=== PATIENT | male | born 1945 | race Caucasian/White ===

== ENCOUNTER → 2017-07-15 | Outpatient (CLI) | payer MEDICARE, BC ==
--- NOTE | 2017-07-15 17:29 | RADIOLOGY REPORT (SQ) ---
EXAM DESCRIPTION: MRI CERVICAL SPINE WITHOUT COMPLETED DATE/TIME: 07/15/2017 4:46 pm REASON FOR STUDY: M54.12 RADICULOPATHY, CERVICAL REGION M43.02 SPONDYLOLYSIS, CERVICAL REGION M54.12 RADICULOPATHY, CERVICAL REGION M43.02 SPONDYLOLYSIS, CERVICAL REGION M54.2 CERVICALGIA COMPARISON: None. TECHNIQUE: Sagittal and Axial imaging includes T1, T2, STIR and gradient echo sequences. LIMITATIONS: None. FINDINGS: ALIGNMENT: Mild anterolisthesis is suggested at C4-5. VERTEBRAE: Intact. BONE MARROW: Mild marrow edema along the C4-5 endplates to the right of midline. There is also right facet mild edema and degenerative change. DISCS: Multilevel diminished signal and height. Detailed below. HARDWARE: None in the spine. CORD AND BASE OF BRAIN: Normal in size and signal intensity. SOFT TISSUES: No soft tissue masses. C1-C2: No significant spinal stenosis. C2-C3: No significant spinal stenosis or exit foraminal stenosis. C3-C4: Minimal disc osteophyte complex. Associated uncovertebral spurring with relatively marked eda ateral foraminal stenosis. No cord compression or central stenosis. C4-C5: Mild presumed degenerative malalignment as above. Associated disc osteophyte complex without mass effect on the cord. Marked right foraminal stenosis. At least moderate left foraminal narrowin g. C5-C6: Disc osteophyte complex without cord compression or high-grade central stenosis. Suspect at l east moderate left foraminal stenosis. C6-C7: Disc osteophyte complex without central stenosis or mass effect on the cord. Mild to moderate foraminal narrowing. C7-T1: No significant spinal stenosis or exit foraminal stenosis. UPPER THORACIC: Incompletely imaged. No significant spinal stenosis or exit foraminal stenosis. OTHER: No other significant finding. IMPRESSION: 1. Cervical spondylosis which looks most pronounced at C4-5. Here, there appears to be mild anterolisthesis with reactive bone edema and foraminal stenosis. 2. No cord compression or hig h-grade central stenosis noted at any level. Other levels of foraminal stenosis are present. TECHNICAL DOCUMENTATION: JOB ID: [id number]- All Rights Reserved
== END ==
LOC: RAD 16:02
PROVIDERS: ATTEND Internal Medicine
DX: M54.12 Radiculopathy, cervical region (principal); M43.02 Spondylolysis, cervical region; M54.2 Cervicalgia
CPT/HCPCS: 72141

== ENCOUNTER 2018-04-08 07:37 | Day surgery (SDC) | payer MEDICARE, BC ==
--- NOTE | 2018-04-02 10:11 | EKG REPORT ---
SEVERITY:- NORMAL ECG - SINUS RHYTHM : Confirmed by: Jarvis Arnett 02-Apr-2018 10:10:44
[2018-04-02 10:25] LABS: HEMATOCRIT 40.6 % (37.9-51.0); HEMOGLOBIN 14.2 g/dL (13.5-17.0); MEAN CORPUSCULAR HEMOGLOBIN 33.1 pg (27.0-33.4); MEAN CORPUSCULAR VOLUME 95 fl (80-97); PLATELET COUNT 259 10^3/uL (150-450); RED BLOOD COUNT 4.29 10^6/uL (4.35-5.55); RED CELL DISTRIBUTION WIDTH 12.9 % (11.5-14.0); WHITE BLOOD COUNT 4.1 10^3/uL (4.0-10.5)
[2018-04-02 10:44] LABS: ALANINE AMINOTRANSFERASE 39 U/L (21-72); ALKALINE PHOSPHATASE 40 U/L (38-126); ANION GAP 7 (5-19); ASPARTATE AMINO TRANSFERASE 31 U/L (17-59); BILIRUBIN,DIRECT 0.4 mg/dL (0.0-0.4); BILIRUBIN,TOTAL 0.8 mg/dL (0.2-1.3); BLOOD UREA NITROGEN 13 mg/dL (7-20); CALCIUM 9.8 mg/dL (8.4-10.2); CARBON DIOXIDE 28 mmol/L (22-30); CHLORIDE 107 mmol/L (98-107); GLUCOSE 97 mg/dL (75-110); POTASSIUM 4.9 mmol/L (3.6-5.0); SODIUM 141.5 mmol/L (137-145); TOTAL PROTEIN 6.9 g/dL (6.3-8.2)
--- NOTE | 2018-04-02 10:49 | RADIOLOGY REPORT (SQ) ---
EXAM DESCRIPTION: CHEST PA/LATERAL COMPLETED DATE/TIME: 04/02/2018 9:58 am REASON FOR STUDY: PRE-OP COMPARISON: None. EXAM PARAMETERS: NUMBER OF VIEWS: two views TECHNIQUE: Digital Frontal and Lateral radiographic views of the chest acquired. RADIATION DOSE: NA LIMITATIONS: none FINDINGS: LUNGS AND PLEURA: No opacities, masses or pneumothorax. No pleural effusion. MEDIASTINUM AND HILAR STRUCTURES: No masses or contour abnormalities. HEART AND VASCULAR STRUCTURES: Heart normal size. No evidence for failure. BONES: No acute findings. HARDWARE: None in the chest. OTHER: No other significant finding. IMPRESSION: NO SIGNIFICANT RADIOGRAPHIC FINDING IN THE CHEST. TECHNICAL DOCUMENTATION: JOB ID: [id number] [employer]- All Rights Reserved Reading location - IP/workstation name: [email or web address]
[~2018-04-08 07:37] MED LIST: CEFAZOLIN 2 GM/D5W RTU 2 GM/50 ML RTUPB IV PRN; LACTATED RINGERS 1000 ML IV PRN; LIDOCAINE 0.5% INJ-PF (5 MG/ML) 50 ML SDV SUBCUT PRN
[2018-04-08] MEDS ORDERED: CEFAZOLIN 2 GM/D5W RTU 2 GM/50 ML RTUPB IV ONE (08:09)
[2018-04-08] MEDS ORDERED: LIDOCAINE 4% TRANSPARENT DRESSING 5 GM KIT ONE (08:10)
[2018-04-08 08:44] LABS: POTASSIUM 4.2 mmol/L (3.6-5.0)
[2018-04-08] MEDS ORDERED: SUCCINYLCHOLINE CHLORIDE INJ 200 MG/10 ML VIAL ONE (08:56)
[2018-04-08] MEDS ORDERED: GLYCOPYRROLATE 1 MG/5 ML SYRINGE ONE (08:56)
[2018-04-08] MEDS ORDERED: BUPIVACAINE HCL 0.5 % INJ/PF 30 ML SDV ONE (10:42)
[2018-04-08] MEDS ORDERED: METHYLENE BLUE 50 MG/10 ML AMPULE ONE ×2 (10:43→10:50)
[2018-04-08] MEDS ORDERED: LIDOCAINE 1% INJ-PF (10 MG/ML) 30 ML SDV ONE (10:43)
[2018-04-08] MEDS ORDERED: FENTANYL CITRATE INJ/PF 100 MCG/2 ML AMPUL ONE (11:46)
[2018-04-08] MEDS ORDERED: ACETAMINOPHEN 1,000 MG/100 ML RTUPB IV ONE (11:46)
[2018-04-08] MEDS ORDERED: ONDANSETRON HCL INJ/PF 4 MG/2 ML SDV ONE (11:46)
[2018-04-08] MEDS ORDERED: MIDAZOLAM 2 MG/2 ML INJ ONE (11:46)
[2018-04-08] MEDS ORDERED: DEXAMETHASONE SOD PHOSPHATE INJ 4 MG/1 ML VIAL ONE (11:46)
[2018-04-08] MEDS ORDERED: PROPOFOL INJ 200 MG/20 ML VIAL IV ONE (11:46)
--- NOTE | 2018-04-08 12:04 | RADIOLOGY REPORT (SQ) ---
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 RADIONUCLIDE AND DOSE: 606 microcuries TC-99m tilmanocept - [employer]. The route of agent administration: Subcutaneous in the skin. TECHNIQUE: The skin of the right neck was prepped in sterile fashion. The radiopharmaceutical was a dministered adjacent to the site of the skin lesion. LIMITATIONS: None. FINDINGS: Images demonstrate activity at the injection site. IMPRESSION: ADMINISTRATION OF RADIOPHARMACEUTICAL FOR SENTINEL LYMPH NODE EVALUATION. TECHNICAL DOCUMENTATION: JOB ID: [id number] [employer]- All Rights Reserved Reading location - IP/workstation name: [email or web address]
[2018-04-08] MEDS ORDERED: ONDANSETRON HCL INJ/PF 4 MG/2 ML SDV IV PRN (12:43)
[2018-04-08] MEDS ORDERED: PROMETHAZINE HCL INJ 25 MG/1 ML VIAL IV PRN ×2 (12:43)
[2018-04-08] MEDS ORDERED: MEPERIDINE HCL/PF INJ 25 MG/1 ML DISP.SYRIN IV PRN (12:43)
[2018-04-08] MEDS ORDERED: OXYCODONE-ACETAMINOPHEN 5-325 MG TABLET PO PRN ×2 (12:43)
[2018-04-08] MEDS ORDERED: DIPHENHYDRAMINE HCL 50 MG/ML VIAL IV PRN (12:43)
[2018-04-08] MEDS ORDERED: MORPHINE SULFATE 10 MG/ML INJ IV PRN (12:43)
[2018-04-08] MEDS ORDERED: FENTANYL CITRATE INJ/PF 100 MCG/2 ML AMPUL IV PRN ×3 (12:43)
--- NOTE | 2018-04-08 15:31 | Operative Report ---
Nonrecallable Operative Report DATE OF SURGERY: 04/08/18 PREOPERATIVE DIAGNOSIS: Right neck melanoma POSTOPERATIVE DIAGNOSIS: Same as above OPERATION: 1. Wide local excision of right neck melanoma. 2. [place] lymph node biopsy SURGEON: RACHEL LONDONO ANESTHESIA: GA TISSUE REMOVED OR ALTERED: 1. Wide local excision of right neck melanoma. 2. Right neck sentinel lymph node. 3. Left neck sentinel lymph node. 4. Additional tissue from the right neck. COMPLICATIONS: None apparent. ESTIMATED BLOOD LOSS: 25 cc PROCEDURE: Drains/implants: None. Procedure in detail: After informed consent was obtained, the patient was brought to the operating room and laid in the supine position. Previously, methylene blue was injected in intradermal position in 4 quadrants around the lesion. This was done in the preoperative area. The area of the neck and chest were then prepped and draped in a normal sterile fashion. The gamma probe was used to survey the neck and axillae. No hot spots could be found in the axillae. There were 2 separate hot spots found in the anterior neck. One on the right and one on the left. No obvious posterior hot spots could be identified. Identification of hot spots was somewhat difficult due to the large amount of shine through from the injection site, as it was in close proximity to the hot spots. 1 cm was measured circumferentially around the right neck lesion. An incision was created composing the entirety of the 1 cm margin. Dissection was carried down to the muscles of the right lateral neck using sharp dissection. All skin and fatty tissue were removed en bloc. They were freed from the fascia of the neck sharply. After this was completed, the specimen was oriented and marked with sutures. Short stitch superior, long stitch lateral. Next attention was turned to sampling of the sentinel lymph nodes. The hot spot in the right neck was identified. The incision was extended medially. Subplatysmal flaps were raised superiorly and inferiorly. Dissection was begun by reflecting the sternocleidomastoid laterally. Sharp and blunt dissection were very carefully used to expose the sentinel lymph node in the right neck. The sentinel lymph node was identified in the area between zone 2 and 3 on the right neck. Small amount of blue dye was seen within the lymph node. Once the lymph node was excised, an ex vivo count was performed. The ex vivo count measured 206. No other obvious hot spots could be identified in the neck. Attention was then turned to closure. The medial incision was extended far enough to accommodate a local rotation flap. The rotation flap was performed. The platysmal layer was closed using 2- 0 Vicryl suture in simple interrupted fashion. The overlying skin was closed using 4-0 Vicryl Rapide suture in subcuticular fashion. A dressing was placed, and attention was turned to survey of the left neck. A hot spot was identified in the medial neck on the left side (zone 6). A small curvilinear incision was created over the area of concern. Dissection was carried through the subcutaneous tissue using sharp dissection and blunt dissection. This was done very carefully. The hot spot was identified. The lymph node was removed from the left neck. An ex vivo count was performed and found to be 61. After this was completed, no other radioactivity could be identified in the left neck. The platysma was closed using 2-0 Vicryl suture in simple interrupted fashion. The overlying skin was closed using 4-0 Vicryl Rapide suture in subcuticular fashion. Dressings were placed, and the procedure was concluded. All sponge, instrument, and needle counts were correct x2 area Condition: Stable.
[2018-04-08] MEDS ORDERED: IBUPROFEN 800 MG TABLET ONE (15:51)
[2018-04-08 17:39] VITALS: BP 170/80
--- NOTE | 2018-04-13 14:23 | Discharge Summary ---
Discharge Summary (SDC) - Discharge Final Diagnosis: right neck melanoma Date of Surgery: 04/08/18 Condition: Good Forms: ASU Anesthesia D/C Instruction, Discharge POC-Surgical Service Referrals: ESTEPHANIA IRVING MD [Primary Care Provider] - RACHEL LONDONO MD [ACTIVE STAFF] - (Follow up 04/19/18@1045) Discharge Diet: As Tolerated Respiratory Treatments at Home: Deep Breathing/Coughing Discharge Activity: Balance Activity w/Rest, Slowly Increase Activity Home Care Assistance: None Needed Report the Following to Your Physician Immediately: Shortness of Breath, Increase in Pain, Fever over 101 Degrees, Unusual Bleeding, Redness, Swelling, Warmth, Increased Soreness, Drainage-Yellow, IV Site Infection Signs
== END 2018-04-08 17:10 | disposition home or self-care (01) ==
LOC: OROUT 07:37
PROVIDERS: ATTEND Surgery
DX: C43.4 Malignant melanoma of scalp and neck (principal); I10 Essential (primary) hypertension; E78.00 Pure hypercholesterolemia, unspecified; K21.9 Gastro-esophageal reflux disease without esophagitis; L40.9 Psoriasis, unspecified; M19.90 Unspecified osteoarthritis, unspecified site; Z85.828 Personal history of other malignant neoplasm of skin; Z79.899 Other long term (current) drug therapy; Z91.040 Latex allergy status
CPT/HCPCS: 93005; 36415 ×2; 82947; 84132; 85027; 80053; 88342 ×2; 88341 ×2; 88307 ×2; 71046; 78195; 93010; 14040; 38500; A9520; J2250; J3490 ×4; A9270; J1100; J3010; J0330; J2405; J2704; J0690; J0131; Q9968; 320